=== PATIENT | male | born 1975 | race Caucasian/White ===

== ENCOUNTER 2020-01-15 14:05 | Emergency (ER) | payer BC ==
--- NOTE | 2020-01-15 16:14 | CRLCT ---
INDICATION: Trauma. Lightheadedness. TECHNIQUE: Noncontrast head CT. FINDINGS: No intracranial hemorrhage, hydrocephalus, mass effect, or shift of midline structures. No evidence for ischemic change or infarction. No calvarial or skullbase fracture. The temporomandibular joints are symmetric and intact. The internal auditory canals are symmetric and clear. The patient is edentulous as seen on the lateral digitizer operator view. IMPRESSION: Negative noncontrast head CT. Please note that all CT scans at this facility use dose modulation, iterative reconstruction, and/or weight-based dosing when appropriate to reduce radiation dose to as low as reasonably achievable. Dictated by Eligio Deleon MD @ Jan 15 2020 4:11PM Signed by Dr. Eligio Deleon @ Jan 15 2020 4:13PM
--- NOTE | 2020-01-15 16:24 | EDM.PDOC ---
ED HPI GENERAL MEDICAL PROBLEM - General Chief Complaint: Back Pain or Injury Stated Complaint: FALL/ LOWER BACK PAIN/HIP PAIN Time Seen by Provider: 01/15/20 14:20 Source of Information: Reports: Patient History Limitations: Reports: No Limitations - History of Present Illness INITIAL COMMENTS - FREE TEXT/NARRATIVE: pt has frequnt episodes that he feels off balance when he stands up quickly and on occassion he will fall. He did fall in the shower and hit his side and the back of his head. He was not knocked out. He has a low grade headache. Onset: Gradual, Other (pt has been having frequent episodes. ) Duration: Hour(s): Location: Reports: Head, Generalized, Other (pt nearly falls frequently) Associated Symptoms: Reports: Other ( near syncope if he stands up quickly. ) back of head lower back and both legs Pain Score (Numeric/FACES): 8 - Related Data Allergies Allergy/AdvReac Type Severity Reaction Status Date / Time No Known Allergies Allergy Verified 01/15/20 14:26 Home Meds: Home Meds NK [No Known Home Meds] 01/15/20 [History] Past Medical History Cardiovascular History: Reports: None Respiratory History: Reports: Asthma Gastrointestinal History: Reports: GERD Genitourinary History: Reports: Other (See Below) Other Genitourinary History: decrease urine flow for for awhile Musculoskeletal History: Reports: Back Pain, Chronic, Fracture Neurological History: Reports: Migraines Psychiatric History: Reports: Depression Endocrine/Metabolic History: Reports: None Hematologic History: Reports: None Immunologic History: Reports: None Oncologic (Cancer) History: Reports: None Dermatologic History: Reports: Other (See Below) Other Dermatologic History: area on left are by elbow - Infectious Disease History Infectious Disease History: Reports: None - Past Surgical History HEENT Surgical History: Reports: Oral Surgery GI Surgical History: Reports: None Social & Family History - Tobacco Use Smoking Status *Q: Current Every Day Smoker Years of Tobacco use: 30 Packs/Tins Daily: 1 - Caffeine Use Caffeine Use: Reports: Soda - Recreational Drug Use Recreational Drug Use: No ED ROS GENERAL - Review of Systems Review Of Systems: See Below Constitutional: Reports: No Symptoms HEENT: Reports: No Symptoms Respiratory: Reports: No Symptoms Cardiovascular: Reports: No Symptoms Endocrine: Reports: No Symptoms GI/Abdominal: Reports: No Symptoms : Reports: Other (pt sometimes feels like he does not empty his bladder. ) Musculoskeletal: Reports: No Symptoms Skin: Reports: No Symptoms Neurological: Reports: Dizziness, Headache, Other (pt fell while in the shower. ) Psychiatric: Reports: No Symptoms ED EXAM,LOWER BACK PAIN/INJURY - Physical Exam Exam: See Below Text/Narrative:: pt is a alert and oriented pt who fell in the shower yesterday. He hit his side and he hit the back of his head. v Exam Limited By: No Limitations General Appearance: Alert, Other (pupils are equal and reactive. ) Ears: Normal TMs Nose: Normal Inspection Throat/Mouth: Normal Inspection Head: Other (mild swelling on the back of his head) Neck: Other (no definite carotid bruits) Respiratory/Chest: No Respiratory Distress, Other (pt has a history of asthma. He does run a lower 02 sat. ) Cardiovascular: Regular Rate, Rhythm GI/Abdominal: Soft, Non-Tender (Male) Exam: Deferred Rectal (Males) Exam: Deferred Back Exam: Normal Inspection Extremities: Normal Inspection Neurological: Alert Course - Vital Signs Last Recorded V/S: Last Vital Signs Temp 36.2 C 01/15/20 14:25 Pulse 104 H 01/15/20 15:09 Resp 21 H 01/15/20 14:25 BP 126/79 01/15/20 15:09 Pulse Ox 91 L 01/15/20 14:25 Orthostatic Blood Pressure [ 126/79 Standing] Orthostatic Blood Pressure [ 117/79 Sitting] Orthostatic Blood Pressure [ 135/70 Supine] - Orders/Labs/Meds Orders: Active Orders 24 hr Category Date Time Status Bladder Scan [RC] ASDIRECTED Care 01/15/20 14:45 Active Cardiac Monitoring [RC] .As Directed Care 01/15/20 14:43 Active Orthostatic Vital Signs [RC] ASDIRECTED Care 01/15/20 14:42 Active Lumbar Spine Min 4V [CR] Stat Exams 01/15/20 14:45 Taken Labs: Laboratory Tests 01/15/20 01/15/20 01/15/20 Range/Units 14:52 14:52 15:10 WBC 6.3 (4.5-11.0) K/uL RBC 5.61 (4.30-5.90) M/uL Hgb 16.2 H (12.0-15.0) g/dL Hct 48.2 (40.0-54.0) % MCV 86 (80-98) fL MCH 29 (27-31) pg MCHC 34 (32-36) % Plt Count 225 (150-400) K/uL Neut % (Auto) 55 (36-66) % Lymph % (Auto) 22 L (24-44) % Hans[place] % (Auto) 13 H (2-6) % Eos % (Auto) 8 H (2-4) % Baso % (Auto) 1 (0-1) % Sodium 140 (140-148) mmol/L Potassium 4.3 (3.6-5.2) mmol/L Chloride 103 (100-108) mmol/L Carbon Dioxide 30 (21-32) mmol/L Anion Gap 6.7 (5.0-14.0) mmol/L BUN 8 (7-18) mg/dL Creatinine 0.9 (0.8-1.3) mg/dL Est Cr Clr Drug Dosing 102.56 mL/min Estimated GFR (MDRD) > 60 (>60) Glucose 96 (74-106) mg/dL Calcium 8.6 (8.5-10.1) mg/dL Total Bilirubin 0.5 (0.2-1.0) mg/dL AST 26 (15-37) U/L ALT 45 (12-78) U/L Alkaline Phosphatase 67 (46-116) U/L C-Reactive Protein (0.0-0.3) mg/dL Total Protein 7.7 (6.4-8.2) g/dL Albumin 4.0 (3.4-5.0) g/dL Globulin 3.7 H (2.3-3.5) g/dL Albumin/Globulin Ratio 1.1 L (1.2-2.2) Urine Color Yellow (YELLOW) Urine Appearance Clear (CLEAR) Urine pH 7.0 (5.0-8.0) Ur Specific [place] 1.015 (1.008-1.030) Urine Protein Negative (NEGATIVE) mg/dL Urine Glucose (UA) Negative (NEGATIVE) mg/dL Urine Ketones Negative (NEGATIVE) mg/dL Urine Occult Blood Negative (NEGATIVE) Urine Nitrite Negative (NEGATIVE) Urine Bilirubin Negative (NEGATIVE) Urine Urobilinogen 0.2 (0.2-1.0) EU/dL Ur Leukocyte Esterase Negative (NEGATIVE) Urine RBC Not seen (0-5) Urine WBC Not seen (0-5) Ur Epithelial Cells Not seen Amorphous Sediment Few Urine Bacteria Not seen Urine Mucus Not seen 01/15/20 Range/Units 15:39 WBC (4.5-11.0) K/uL RBC (4.30-5.90) M/uL Hgb (12.0-15.0) g/dL Hct (40.0-54.0) % MCV (80-98) fL MCH (27-31) pg MCHC (32-36) % Plt Count (150-400) K/uL Neut % (Auto) (36-66) % Lymph % (Auto) (24-44) % [place] % (Auto) (2-6) % Eos % (Auto) (2-4) % Baso % (Auto) (0-1) % Sodium (140-148) mmol/L Potassium (3.6-5.2) mmol/L Chloride (100-108) mmol/L Carbon Dioxide (21-32) mmol/L Anion Gap (5.0-14.0) mmol/L BUN (7-18) mg/dL Creatinine (0.8-1.3) mg/dL Est Cr Clr Drug Dosing mL/min Estimated GFR (MDRD) (>60) Glucose (74-106) mg/dL Calcium (8.5-10.1) mg/dL Total Bilirubin (0.2-1.0) mg/dL AST (15-37) U/L ALT (12-78) U/L Alkaline Phosphatase (46-116) U/L C-Reactive Protein 0.05 (0.0-0.3) mg/dL Total Protein (6.4-8.2) g/dL Albumin (3.4-5.0) g/dL Globulin (2.3-3.5) g/dL Albumin/Globulin Ratio (1.2-2.2) Urine Color (YELLOW) Urine Appearance (CLEAR) Urine pH (5.0-8.0) Ur Specific [place] (1.008-1.030) Urine Protein (NEGATIVE) mg/dL Urine Glucose (UA) (NEGATIVE) mg/dL Urine Ketones (NEGATIVE) mg/dL Urine Occult Blood (NEGATIVE) Urine Nitrite (NEGATIVE) Urine Bilirubin (NEGATIVE) Urine Urobilinogen (0.2-1.0) EU/dL Ur Leukocyte Esterase (NEGATIVE) Urine RBC (0-5) Urine WBC (0-5) Ur Epithelial Cells Amorphous Sediment Urine Bacteria Urine Mucus - Re-Assessments/Exams Free Text/Narrative Re-Assessment/Exam: 01/15/20 16:39 lumbar spine series was neg for fracture, his cat scan of the head did not show any acute findings. His orthostatics showed mild changes. His lab work looked good. A bladder scan after voiding did indicate that he was emptying his bladder. Departure - Departure Time of Disposition: 16:24 Disposition: Home, Self-Care 01 Condition: Fair Clinical Impression: Postural hypotension, Chronic low back pain - Discharge Information Referrals: PCP,None [Primary Care Provider] - Forms: ED Department Discharge Care Plan Goals: head scan did not show acute problems. lumbar spine did not show a fracture, Lab work was good. will have you return for a carotid US to rule out any vessel narrowing Be sure to stay hydrated because your bp does run low/ appt with Dr Sawyer in [facility]. Sepsis Event Note (ED) - Evaluation Sepsis Screening Result: No Definite Risk - Focused Exam Vital Signs: Vital Signs Temp Pulse Resp BP Pulse Ox 01/15/20 15:09 104 H 126/79 01/15/20 14:25 36.2 C 98 21 H 134/75 91 L 01/15/20 14:20 36.2 C 98 21 H 134/75 91 L - My Orders Last 24 Hours: My Active Orders 01/15/20 14:42 Orthostatic Vital Signs [RC] ASDIRECTED 01/15/20 14:43 Cardiac Monitoring [RC] .As Directed 01/15/20 14:45 Bladder Scan [RC] ASDIRECTED Lumbar Spine Min 4V [CR] Stat - Assessment/Plan Last 24 Hours: My Active Orders 01/15/20 14:42 Orthostatic Vital Signs [RC] ASDIRECTED 01/15/20 14:43 Cardiac Monitoring [RC] .As Directed 01/15/20 14:45 Bladder Scan [RC] ASDIRECTED Lumbar Spine Min 4V [CR] Stat
--- NOTE | 2020-01-16 10:41 | CR ---
Lumbar Spine Min 4V CLINICAL HISTORY: Back pain FINDINGS: The vertebral body heights are maintained. There is some diffuse spondylosis. Alignment is maintained from flexion through extension. Patient has a transitional sacral segment. IMPRESSION: Mild diffuse spondylosis No fracture or subluxation Transitional lumbosacral segment
== END 2020-01-15 16:41 | disposition home or self-care (01) ==
LOC: JP.ED 14:05
DX: I95.1 Orthostatic hypotension (principal); G89.29 Other chronic pain; M54.5 Low back pain; J45.909 Unspecified asthma, uncomplicated; F17.210 Nicotine dependence, cigarettes, uncomplicated
CPT/HCPCS: 36415; 51798; 70450; 72110; 72110-26; 80053; 81001; 85025; 86140; 99284-25